=== PATIENT | female | born 1980 | race Caucasian/White ===

== ENCOUNTER 2020-03-29 15:52 | Emergency (ER) | payer OTHER ==
[2020-03-29 16:00] VITALS: BP 154/111; PULSE 87; TEMP 98; BMI 34.4
--- NOTE | 2020-03-29 17:13 | PDOC ---
Documentation entered by Lidia Lopez SCRIBE, acting as scribe for Miose Martinez MD. Moise Martinez MD: This documentation has been prepared by the scribeJohn Lincy, SCRIBE, under my direction and personally reviewed by me in its entirety. I confirm that the documentation accurately reflects all work, treatment, procedures, and medical decision making performed by me. History of Present Illness - General Chief Complaint: Cold Symptoms Stated Complaint: COUGH Time Seen by Provider: 03/29/20 15:54 History Source: Patient Exam Limitations: No Limitations - History of Present Illness Initial Comments: 03/29/20 16:23 The patient is a 39-year-old female with no reported past medical history who presents to the emergency department with generalized weakness and cough. The patient presents with generalized weakness and cough for the past 3 days, associated with 2 days of right-sided chest and back pain only while coughing, subjective fever, sore throat, and body aches. Denies shortness of breath or difficulty breathing. The patient reports the cough is mostly nonproductive, however reports occasional episodes of cough with white sputum production. Denies chest pain or back pain. Denies leg swelling, hemoptysis, abdominal pain, diarrhea, hematochezia, dysuria. Unknown sick contact. Allergies: None Social history: Lives with family. +pack a day tobacco user. Works as a underwriting service representative at [employer] ([employer] Past History - Medical History Allergies/Adverse Reactions: Allergies Allergy/AdvReac Type Severity Reaction Status Date / Time No Known Allergies Allergy Verified 03/29/20 15:53 Home Medications: Ambulatory Orders NK [No Known Home Medication] 03/29/20 COPD: No - Psycho-Social/Smoking History Smoking History: Current every day smoker Have you smoked in the past 12 months: Yes Number of Cigarettes Smoked Daily: 20 'Breaking Loose' booklet given: 05/01/16 Review of Systems - Review of Systems Able to Perform ROS?: Yes Comments:: 03/29/20 16:24 Constitutional - +subjective fever, generalized weakness, body aches. HEENT: denies vision changes, sore throat Respiratory: +cough with chest and back pain. Denies difficulty breathing, sob, hemoptysis Cardiac: denies chest pain, palpitations, lightheadedness, leg swelling Abd/GI: denies abd pain, nausea, vomiting, blood per rectum, melena, diarrhea : denies dysuria, frequency, discharge Musculoskeletal - denies back pain, joint swelling skin - denies bruising, erythema, rash neurological: denies headache, numbness, focal weakness, tingling, ataxia. hematologic: denies anemia, easy bruising, easy bleeding *Physical Exam - Physical Exam 03/29/20 16:16 GENERAL: The patient is awake, alert, and fully oriented, Nontoxic - in no acute distress. HEAD: Normocephalic, atraumatic. EYES: extraocular movements intact, sclera anicteric, conjunctiva clear. ENT: Normal voice, Moist mucous membranes. NECK: Normal range of motion, supple without lymphadenopathy, JVD, or masses. LUNGS: Breath sounds equal, clear to auscultation bilaterally. No wheezes, no crackles, no rales. HEART: Regular rate and rhythm, normal S1 and S2 without murmur, rub or gallop. ABDOMEN: Soft, nontender, normoactive bowel sounds. No guarding, no rebound. No masses. EXTREMITIES: Normal range of motion, no edema. No clubbing or cyanosis. No cords, erythema, or tenderness. NEUROLOGICAL: No facial asymmetry, Normal speech, normal gait. PSYCH: Normal mood, normal affect. SKIN: Warm, Dry, normal turgor, no rashes or lesions noted. Medical Decision Making - Medical Decision Making 03/29/20 17:10 xray to r/o pna covid testing vitals wnl xray neg for acute process awaiting covid results will have pt quarantine/isolate until results are back A portion of this note was documented by scribe services under my direction. I have reviewed the details of the note, within reason, and agree with the documentation with the following case summary and management plan written by me Discharge - Discharge Information Problems reviewed: Yes Clinical Impression/Diagnosis: Encounter for laboratory testing for COVID-19 virus, Counseled about COVID-19 virus infection Upper respiratory infection Qualifiers: URI type: unspecified viral URI Qualified Code(s): J06.9 - Acute upper respiratory infection, unspecified Condition: Stable Disposition: HOME - Admission No - Follow up/Referral - Patient Discharge Instructions Patient Printed Discharge Instructions: DI for Viral Upper Respiratory Infection -- Adult, [facility]-Coronavirus Instructions, [facility] COVID-19 Isolation Protocol Additional Instructions: Return to the emergency department immediately with ANY new, persistent or worsening symptoms. You MUST call and follow up with your doctor tomorrow for further evaluation of your symptoms. Results were discussed with you. Please make sure your doctor reviews the results of your emergency evaluation. Your Emergency Department visit is not complete without a follow up with your doctor. If you had any xrays during your visit, it was read preliminarily by myself, a Radiologist will review it and if there are any additional findings we will call you. Print Language: WALLISIAN - Post Discharge Activity Work/Back to School Note: Back to Work
--- NOTE | 2020-04-01 09:49 | EKG ---
Test Reason : Blood Pressure : / mmHG Vent. Rate : 081 BPM Atrial Rate : 081 BPM P-R Int : 142 ms QRS Dur : 078 ms QT Int : 372 ms P-R-T Axes : 050 072 051 degrees QTc Int : 432 ms NORMAL SINUS RHYTHM NORMAL ECG NO PREVIOUS ECGS AVAILABLE Confirmed by Jim Monique ([id number]) on 04/01/2020 9:48:50 AM Referred By: MD TRINIDAD Confirmed By:Jim Monique
== END 2020-03-29 17:31 | disposition home or self-care (01) ==
LOC: FER 15:52
DX: Z03.818 Encounter for observation for suspected exposure to other biological agents ruled out (principal); J06.9 Acute upper respiratory infection, unspecified
CPT/HCPCS: 71046-TC-FY; 93005; 93010; 99285-25; U0003

== ENCOUNTER 2020-10-01 10:45 | Emergency (ER) | payer OTHER | END 2020-10-01 12:32 | disposition home or self-care (01) | LOC: JVIRT 10:45 | DX: Z20.822 Contact with and (suspected) exposure to COVID-19 (principal) | CPT/HCPCS: C9803; G2012-GT; U0003 ==

== ENCOUNTER 2020-11-10 12:30 | Emergency (ER) | payer OTHER ==
[2020-11-10 13:00] VITALS: BP 154/99; TEMP 98.7; BMI 33.6
[2020-11-10] MEDS ORDERED: IBUPROFEN 600 MG TABLET (FP) PO ONE ×2 (13:12→13:17)
[2020-11-10 13:40] VITALS: PULSE 86
[2020-11-10 13:58] LABS: EOS % 1.7 % (0-4.5); HEMATOCRIT 43.5 % (32.4-45.2); HEMOGLOBIN 14.4 GM/dl (10.7-15.3); LYMPH % 33.7 % (8-40); MCH 30.9 pg (25.7-33.7); MCHC 33.1 g/dl (32.0-36.0); MEAN CELL VOLUME 93.2 fl (80-96); MEAN PLT VOLUME 9.3 fl (7.5-11.1); MONO % 6.4 % (3.8-10.2); NEUT % 57.2 % (42.8-82.8); PLATELET COUNT 202 K/MM3 (134-434); RBC 4.66 M/mm3 (3.60-5.2); RDW 14.2 % (11.6-15.6); WHITE BLOOD COUNT 7.6 K/mm3 (4.0-10.8)
[2020-11-10 14:05] LABS: CALCIUM 8.7 mg/dl (8.5-10); CREATININE 0.7 mg/dl (0.55-1.3); TOT PROT 7.1 g/dl (6.4-8.2)
== END 2020-11-10 14:50 | disposition home or self-care (01) ==
LOC: FER 12:30
DX: R07.9 Chest pain, unspecified (principal); Z20.822 Contact with and (suspected) exposure to COVID-19
CPT/HCPCS: 36415; 71045-TC-FY; 80053; 84484; 85025; 93005; 99285-25; C9803; U0003

== ENCOUNTER 2021-11-04 19:00 | Emergency (ER) | payer OTHER ==
[2021-11-04 19:19] VITALS: BP 138/92; PULSE 95; TEMP 98.3; BMI 36.0
[2021-11-04] MEDS ORDERED: morphine CARPU-JECT 4 MG/1 ML DISP.SYRIN IVPUSH ONE (19:43)
[2021-11-04] MEDS ORDERED: SODIUM CHLORIDE 1,000 ML IV ONE (19:43)
[2021-11-04] MEDS ORDERED: morphine SULFATE 4 MG/ML VIAL ONE (19:56)
[2021-11-04 20:16] LABS: ALBUMIN 3.5 g/dl (3.4-5.0); BILIRUBIN,TOTAL 0.6 mg/dl (0.2-1); CREATININE 0.7 mg/dl (0.55-1.3); TOT PROT 6.8 g/dl (6.4-8.2)
[2021-11-04 20:27] LABS: EPITHELIAL CELLS FEW /hpf
[2021-11-04] MEDS ORDERED: HYDROmorphone HCL CARPU-JECT 1 MG/1 ML DISP.SYRIN IVPUSH ONE (21:34)
[2021-11-04] MEDS ORDERED: HYDROmorphone HCL/PF 1 MG/ML VIAL ONE (21:35)
[2021-11-04 21:49] LABS: BASO % 0.4 % (0-2.0); EOS % 1.8 % (0-4.5); HEMATOCRIT 40.4 % (32.4-45.2); HEMOGLOBIN 13.1 GM/dL (10.7-15.3); LYMPH % 30.6 % (8-40); MCH 29.9 pg (25.7-33.7); MCHC 32.6 g/dl (32.0-36.0); MEAN CELL VOLUME 91.9 fl (80-96); MEAN PLT VOLUME 8.9 fl (7.5-11.1); MONO % 5.2 % (3.8-10.2); PLATELET COUNT 233 10^3/uL (134-434); RBC 4.39 M/mm3 (3.60-5.2); RDW 15.1 % (11.6-15.6); WHITE BLOOD COUNT 9.7 K/mm3 (4.0-10.0)
[2021-11-04] MEDS ORDERED: CEFTRIAXONE 1 GM in DEXTROSE 5%-WATER - 50 ML IVPB ONE (22:07)
[2021-11-04] MEDS ORDERED: cefTRIAXone SODIUM 1 GM VIAL ONE (22:08)
== END 2021-11-04 22:46 | disposition home or self-care (01) ==
LOC: FER 19:00
PROC: 3E03329 Introduction of Other Anti-infective into Peripheral Vein, Percutaneous Approach (ICD-10-PCS; principal; 2021-11-04)
PROC: 3E033GC Introduction of Other Therapeutic Substance into Peripheral Vein, Percutaneous Approach (ICD-10-PCS; 2021-11-04)
PROC: 3E033NZ Introduction of Analgesics, Hypnotics, Sedatives into Peripheral Vein, Percutaneous Approach (ICD-10-PCS; 2021-11-04)
PROC: 3E0337Z Introduction of Electrolytic and Water Balance Substance into Peripheral Vein, Percutaneous Approach (ICD-10-PCS; 2021-11-04)
DX: N30.00 Acute cystitis without hematuria (principal); R10.30 Lower abdominal pain, unspecified
CPT/HCPCS: 36415; 74177-TC; 80053; 81003; 81015; 83605; 83690; 84703; 85025; 87086; 99285-25; Q9967

== ENCOUNTER 2021-12-12 17:29 | Emergency (ER) | payer OTHER ==
[2021-12-12 18:06] VITALS: PULSE 78; TEMP 97.7; BMI 39.8
[2021-12-12 18:37] LABS: ALBUMIN 3.9 g/dl (3.4-5.0); BILIRUBIN,TOTAL 0.5 mg/dl (0.2-1); CALCIUM 9.1 mg/dl (8.5-10); CREATININE 0.8 mg/dl (0.55-1.3); TOT PROT 6.7 g/dl (6.4-8.2)
[2021-12-12 20:01] LABS: BASO % 0.4 % (0-2.0); EOS % 1.7 % (0-4.5); HEMATOCRIT 39.5 % (32.4-45.2); HEMOGLOBIN 13.2 GM/dL (10.7-15.3); LYMPH % 29.1 % (8-40); MCH 30.3 pg (25.7-33.7); MCHC 33.5 g/dl (32.0-36.0); MEAN CELL VOLUME 90.5 fl (80-96); MEAN PLT VOLUME 9.4 fl (7.5-11.1); MONO % 8.2 % (3.8-10.2); NEUT % 60.6 % (42.8-82.8); PLATELET COUNT 198 10^3/uL (134-434); RBC 4.36 M/mm3 (3.60-5.2); RDW 15.4 % (11.6-15.6); WHITE BLOOD COUNT 8.1 K/mm3 (4.0-10.0)
[2021-12-12 21:14] VITALS: BP 179/102
== END 2021-12-12 21:14 | disposition home or self-care (01) ==
LOC: FER 17:29
DX: R07.89 Other chest pain (principal); I10 Essential (primary) hypertension
CPT/HCPCS: 36415; 71046-TC-FY; 80053; 84484; 84703; 85025; 93005; 99285-25

== ENCOUNTER 2025-05-22 04:04 | Emergency (ER) | payer OTHER ==
[2025-05-22 04:15] VITALS: BP 137/97; PULSE 104; RESP 18; TEMP 97.7; BMI 32.4
[2025-05-22] MEDS ORDERED: KETOROLAC TROMETHAMINE 30 MG/1 ML VIAL ONE (04:15)
[2025-05-22] MEDS ORDERED: predniSONE 20 MG TABLET (UD) ONE (04:16)
[2025-05-22] MEDS: KETOROLAC TROMETHAMINE 30 MG/1 ML VIAL IM ONE (04:23)
[2025-05-22] MEDS: ALBUTEROL SO4 2.5/IPRATROPIUM 0.5 INH SOL 3 ML VIAL.NEB. NEB SCH (04:23)
[2025-05-22] MEDS: predniSONE 20 MG TABLET (UD) PO ONE (04:28)
[2025-05-22] MEDS ORDERED: ALBUTEROL SO4 HFA INHALER IH ONE (05:32)
[2025-05-22] MEDS: ALBUTEROL SO4 HFA INHALER IH ONE (05:33)
== END 2025-05-22 05:43 | disposition home or self-care (01) ==
LOC: FER 04:04
PROC: 3E0233Z Introduction of Anti-inflammatory into Muscle, Percutaneous Approach (ICD-10-PCS; principal; 2025-05-22)
PROC: 3E0F7GC Introduction of Other Therapeutic Substance into Respiratory Tract, Via Natural or Artificial Opening (ICD-10-PCS; 2025-05-22)
DX: J45.909 Unspecified asthma, uncomplicated (principal); R05.9 Cough, unspecified; J02.9 Acute pharyngitis, unspecified; B34.9 Viral infection, unspecified
CPT/HCPCS: 71046-TC-FY; 87637-QW; 93005; 96374; 96375; 99285-25